=== PATIENT | male | born 1980 | race Two or more races ===

== ENCOUNTER 2016-09-24 02:54 | Emergency (ER) | payer OTHER ==
[~2016-09-24] VITALS: Ht 170.2 cm; Wt 85.3 kg
[2016-09-24 03:10] VITALS: BP 133/63
[2016-09-24] MEDS ORDERED: HYDROCODONE/APAP 5/325MG 1 EACH TABLET PO ONE (03:30)
[2016-09-24] MEDS ORDERED: TDAP [DIPH/PERTUSSIS/TET] 0.5 ML VIAL IM ONE ×2 (03:30→03:36)
[2016-09-24] MEDS ORDERED: ONDANSETRON 4 MG TAB.RAPDIS SL ONE (03:30)
[2016-09-24] MEDS ORDERED: CEPHALEXIN MONOHYDRATE 500 MG CAPSULE PO ONE ×2 (03:30→03:36)
[2016-09-24] MEDS ORDERED: SULFAMETH/TRIMETH 800/160 MG 1 UDTAB TABLET PO ONE ×2 (03:30→03:36)
[2016-09-24] MEDS ORDERED: ONDANSETRON 4 MG TAB.RAPDIS ONE (03:36)
[2016-09-24] MEDS ORDERED: HYDROCODONE/APAP 5/325MG 1 EACH TABLET ONE (03:36)
== END 2016-09-24 05:13 | disposition home or self-care (01) ==
LOC: ER 02:59
DX: S09.90XA Unspecified injury of head, initial encounter (principal); L03.211 Cellulitis of face; R51 Headache; W22.8XXA Striking against or struck by other objects, initial encounter; Y93.89 Activity, other specified; Y92.89 Other specified places as the place of occurrence of the external cause; Y99.9 Unspecified external cause status
CPT/HCPCS: 70450; 90471; 90715; 99284; A4606; Q0162; Z7610

== ENCOUNTER 2017-01-09 14:51 | Emergency (ER) | payer OTHER ==
[~2017-01-09] VITALS: Ht 170.2 cm; Wt 77.1 kg
[2017-01-09 14:51] VITALS: BP 118/57
[2017-01-09] MEDS ORDERED: IBUPROFEN 600 MG TABLET PO ONE ×2 (15:28→15:30)
[2017-01-09] MEDS ORDERED: ASPIRIN 325 MG TABLET ONE (15:28)
[2017-01-09] MEDS ORDERED: ASPIRIN 325 MG TABLET PO ONE (15:30)
[2017-01-09] MEDS ORDERED: LORAZEPAM 1 MG TABLET ONE (15:46)
[2017-01-09] MEDS ORDERED: LORAZEPAM 1 MG TABLET PO ONE (16:00)
--- NOTE | 2017-01-09 16:38 | NUR ---
PT FEELS MUCH BETTER POST MEDICATION. DENIES CHEST PAIN AT THIS TIME. D/C IN STABLE CONDITION.
== END 2017-01-09 16:49 | disposition home or self-care (01) ==
LOC: ER 14:53
DX: R07.89 Other chest pain (principal); L21.9 Seborrheic dermatitis, unspecified; F41.9 Anxiety disorder, unspecified; F12.10 Cannabis abuse, uncomplicated; F17.200 Nicotine dependence, unspecified, uncomplicated
CPT/HCPCS: 71010-TC; A4606; Z7610

== ENCOUNTER 2017-03-25 15:32 | Emergency (ER) | payer OTHER ==
[~2017-03-25] VITALS: Ht 170.2 cm; Wt 76.7 kg
[2017-03-25 15:42] VITALS: BP 132/77
== END 2017-03-25 16:14 | disposition other institution (70) ==
LOC: ER 15:37
DX: F41.9 Anxiety disorder, unspecified (principal); L30.9 Dermatitis, unspecified
CPT/HCPCS: 99284; A4606; Z7610

== ENCOUNTER 2017-04-21 20:54 | Emergency (ER) | payer OTHER ==
[~2017-04-21] VITALS: Ht 170.2 cm; Wt 72.6 kg
[2017-04-21 21:09] VITALS: BP 101/64
--- NOTE | 2017-04-21 21:54 | NUR ---
CALLED NO ANSWER
== END 2017-04-21 22:11 | disposition left against medical advice (07) ==
LOC: ER 20:56
DX: Z53.21 Procedure and treatment not carried out due to patient leaving prior to being seen by health care provider (principal)
CPT/HCPCS: A4606; Z7610

== ENCOUNTER 2017-05-09 19:07 | Emergency (ER) | payer OTHER ==
[~2017-05-09] VITALS: Ht 170.2 cm; Wt 77.1 kg
--- NOTE | 2017-05-09 19:10 | NUR ---
CALLED PT IN [place], NO RESPONSE
[2017-05-09 19:12] VITALS: BP 113/70
--- NOTE | 2017-05-09 19:35 | NUR ---
CALLED PT IN [place], NO RESPONSE
--- NOTE | 2017-05-09 20:01 | NUR ---
CALLED PT IN [place], NO RESPONSE
--- NOTE | 2017-05-09 20:24 | NUR ---
CALLED PT IN [place], NO RESPONSE
--- NOTE | 2017-05-09 20:25 | NUR ---
PER ER REGISRTATION, PT LEFT SOH
== END 2017-05-09 20:26 | disposition left against medical advice (07) ==
LOC: ER 19:08
DX: Z53.21 Procedure and treatment not carried out due to patient leaving prior to being seen by health care provider (principal)
CPT/HCPCS: A4606; Z7610

== ENCOUNTER 2017-06-25 06:02 | Emergency (ER) | payer OTHER ==
[~2017-06-25] VITALS: Ht 170.2 cm; Wt 72.6 kg
--- NOTE | 2017-06-25 06:05 | NUR ---
TO BED 8 A 36 YO MALE PATIENT BB FAMILY. "ALCOHOL POISONING." PATIENT IS ALERT AND RESPONSIVE. NAD NOTED. VSS. SEEN AMBULATING TO BED WITH STEADY GAIT. SAFETY AND COMFORT MEASURES PROVIDED.
[2017-06-25] MEDS ORDERED: LORAZEPAM INJ 2 MG/ML VIAL ONE (06:50)
--- NOTE | 2017-06-25 06:50 | NUR ---
STARTED A SALINE LOCK ON THE RIGHT HAND G20.
[2017-06-25] MEDS ORDERED: FAMOTIDINE/PF INJ 20 MG/2 ML VIAL IV ONE ×2 (06:51→07:00)
--- NOTE | 2017-06-25 06:56 | NUR ---
[facility] in ED - 06/25/17 at 0703 by ZOHREH MEDICATED PATIENT ORDERED BY DR RODRIGUEZ.
--- NOTE | 2017-06-25 06:56 | NUR ---
MEDICATED PATIENT ORDERED BY DR CAO.
--- NOTE | 2017-06-25 06:57 | NUR ---
APPLICATION SUPPORT TECHNICIAN AT BEDSIDE TO DRAW BLOOD.
[2017-06-25] MEDS ORDERED: LORAZEPAM INJ 2 MG/ML VIAL IV ONE (07:00)
[2017-06-25] MEDS ORDERED: IV NS 0.9% 1,000 ML BAG IV ONE (07:00)
--- NOTE | 2017-06-25 07:07 | NUR ---
ENDORSED CARE TO ALFREDO PEÑA FOR SHY.
--- NOTE | 2017-06-25 07:17 | NUR ---
Received patient from Funmilayo HUGO. Pt is lying in bed, with an on going IV fluid running. NAD. VSS rr even and unlabored. skin is warm and non diaphroetic.Will continue to montior
[2017-06-25 07:25] LABS: BASOPHILS # (AUTO) 0.1 /CMM (0.0-0.2); BASOPHILS % (AUTO) 0.5 % (0.0-2.0); EOSINOPHILS % (AUTO) 0.2 % (0.0-6.0); HEMATOCRIT 52 % (39-51); HEMOGLOBIN 16.9 g/dL (13.5-17.5); LYMPHOCYTES # (AUTO) 2.8 /CMM (0.8-4.8); LYMPHOCYTES % (AUTO) 20.2 % (20.0-44.0); MEAN CORPUSCULAR HEMOGLOBIN 30 PG (26.0-33.0); MEAN CORPUSCULAR HGB CONC 33 g/dl (31.0-36.0); MEAN CORPUSCULAR VOLUME 90 fL (80-96); MONOCYTES # (AUTO) 0.3 /CMM (0.1-1.30); MONOCYTES % (AUTO) 2.3 % (2.0-12.0); NEUTROPHILS # (AUTO) 10.6 /CMM (1.8-8.9); NEUTROPHILS % (AUTO) 76.8 % (43.0-81.0); PLATELET COUNT (AUTO) 289 /CMM (150-450); RDW COEFFICIENT OF VARIATION 12.7 (11.5-15.0); RED BLOOD CELL COUNT(AUTO) 5.74 MIL/uL (4.5-6.0); WHITE BLOOD COUNT (AUTO) 13.8 K/uL (4.3-11.0)
[2017-06-25 07:42] LABS: ALBUMIN 3.8 g/dL (3.4-5.0); BILIRUBIN,TOTAL 0.3 mg/dL (0.2-1.0); CALCIUM, SERUM 9.3 mg/dL (8.5-10.1); CREATININE 1.3 mg/dL (0.6-1.3); POTASSIUM 3.8 mmol/L (3.5-5.1); TOTAL PROTEIN, SERUM 7.2 g/dL (6.4-8.2)
[2017-06-25] MEDS ORDERED: KETOROLAC TROMETHAMINE 15 MG/ML VIAL ONE (07:59)
[2017-06-25] MEDS ORDERED: KETOROLAC TROMETHAMINE INJ 30 MG/ML VIAL IV ONE (08:00)
[2017-06-25] MEDS ORDERED: DICYCLOMINE HCL INJ 20 MG/2 ML AMPUL IM ONE ×2 (08:28→08:30)
[2017-06-25] MEDS ORDERED: ONDANSETRON HCL/PF 4 MG/2 ML VIAL ONE (08:28)
[2017-06-25] MEDS ORDERED: ONDANSETRON HCL/PF 4 MG/2 ML VIAL IV ONE (08:30)
--- NOTE | 2017-06-25 09:16 | NUR ---
patient asleep. VSS
--- NOTE | 2017-06-25 09:56 | NUR ---
PT. VERBALIZED UNDERSTANDING OF AFTERCARE INSTRUCTIONS.Patient discharged to home in stable condition. Written and verbal after care instructions given. Patient verbalizes understanding of instruction.IV removed. Catheter intact and site benign. Pressure and 4x4 applied to site. No bleeding noted.
[2017-06-25 10:08] VITALS: BP 131/87
== END 2017-06-25 10:08 | disposition home or self-care (01) ==
LOC: ER 06:04
DX: F10.129 Alcohol abuse with intoxication, unspecified (principal); E86.0 Dehydration; R11.2 Nausea with vomiting, unspecified
CPT/HCPCS: 36415; 80048; 80076; 83690; 85025; 96361; 96372; 96374; 96375; 99284; A4606; J0500; J1885; J2060; J2405; J3490; J7030; Z7610

== ENCOUNTER 2019-04-15 17:58 | Emergency (ER) | payer OTHER ==
[~2019-04-15] VITALS: Ht 170.2 cm; Wt 83.9 kg
[2019-04-15] MEDS ORDERED: KETOROLAC TROMETHAMINE INJ 30 MG/ML VIAL IV ONE (18:30)
[2019-04-15] MEDS ORDERED: ONDANSETRON HCL/PF 4 MG/2 ML VIAL IVP ONE (18:30)
[2019-04-15] MEDS ORDERED: HYDROMORPHONE INJ 2 MG/ML DISP.SYRIN IV ONE ×2 (18:30→20:00)
[2019-04-15] MEDS ORDERED: IV NS 0.9% 1,000 ML BAG IV ONE (18:30)
--- NOTE | 2019-04-15 18:30 | NUR ---
AAOX4. PATIENT BIB PARENTS W/ COMPLAINTS OF ABDOMINAL CRAMPS X3 HOURS. PATIENT IS NAUSEOUS AND IS DRY HEAVING. PATIENT IS COMPLAINING OF PAIN. AWAITING ON MD'S ORDER. WILL START IV FOR LABWORK. WILL CONTINUE TO MONITOR PATIENT FOR SAFETY.
[2019-04-15] MEDS ORDERED: HYDROMORPHONE 1 MG/1 ML DISP.SYRIN ONE ×2 (18:39→19:58)
[2019-04-15] MEDS ORDERED: ONDANSETRON HCL/PF 4 MG/2 ML VIAL ONE (18:39)
[2019-04-15] MEDS ORDERED: KETOROLAC TROMETHAMINE 15 MG/ML VIAL ONE (18:39)
[2019-04-15 18:40] LABS: BASOPHILS # (AUTO) 0.1 /CMM (0.0-0.2); BASOPHILS % (AUTO) 0.4 % (0.0-2.0); EOSINOPHILS % (AUTO) 0.1 % (0.0-6.0); HEMATOCRIT 53 % (39-51); HEMOGLOBIN 17.7 g/dL (13.5-17.5); LYMPHOCYTES # (AUTO) 1.9 /CMM (0.8-4.8); LYMPHOCYTES % (AUTO) 9.3 % (20.0-44.0); MEAN CORPUSCULAR HGB CONC 33 g/dl (31.0-36.0); MEAN CORPUSCULAR VOLUME 91 fL (80-96); MONOCYTES # (AUTO) 0.9 /CMM (0.1-1.30); MONOCYTES % (AUTO) 4.2 % (2.0-12.0); NEUTROPHILS # (AUTO) 17.5 /CMM (1.8-8.9); PLATELET COUNT (AUTO) 298 /CMM (150-450); RED BLOOD CELL COUNT(AUTO) 5.81 MIL/uL (4.5-6.0); WHITE BLOOD COUNT (AUTO) 20.3 K/uL (4.3-11.0)
--- NOTE | 2019-04-15 18:49 | NUR ---
RECREATION LEADER AT BEDSIDE TO TAKE PATIENT CT SCAN
[2019-04-15 18:54] LABS: ALBUMIN 5.1 g/dL (3.4-5.0); BILIRUBIN,DIRECT 0.2 mg/dL (0.0-0.2); BILIRUBIN,TOTAL 0.9 mg/dL (0.2-1.0); CALCIUM, SERUM 10.7 mg/dL (8.5-10.1); CREATININE 1.4 mg/dL (0.6-1.3); POTASSIUM 4.1 mmol/L (3.5-5.1); TOTAL PROTEIN, SERUM 9.6 g/dL (6.4-8.2)
--- NOTE | 2019-04-15 19:10 | NUR ---
RECEIVED OT FROM NICOLA HUGO FOR SHY. PT IN BED AAOX4. NAD NOTED.
--- NOTE | 2019-04-15 19:13 | NUR ---
REPORT GIVEN TO BETHEL LONGO FOR SHY.
--- NOTE | 2019-04-15 20:06 | NUR ---
Patient discharged to home in stable condition. Written and verbal after care instructions given. Patient verbalizes understanding of instruction.IV removed. Catheter intact and site benign. Pressure and 4x4 applied to site. No bleeding noted. Pt ambulatory with a steady gait
[2019-04-15 20:14] VITALS: BP 137/89
== END 2019-04-15 20:14 | disposition home or self-care (01) ==
LOC: ER 18:02
DX: K52.9 Noninfective gastroenteritis and colitis, unspecified (principal)
CPT/HCPCS: 36415; 74176; 80048; 80076; 83690; 85025; 96361; 96374; 96375; 96376; 99284; J1170 ×2; J1885; J2405; J7030

== ENCOUNTER 2019-06-19 04:00 | Emergency (ER) | payer OTHER ==
[~2019-06-19] VITALS: Ht 170.2 cm; Wt 83.9 kg
[2019-06-19] MEDS ORDERED: clonazePAM 1 MG TABLET ONE (04:26)
--- NOTE | 2019-06-19 04:28 | NUR ---
BIBSELF WITH FATHER FROM HOME. TO ER BED 4. AAOX4. NO RESP DISTRESS, BREATHING EVEN AND UNLABORED. AMBULATORY. C/O ANXIETY, FEELING OF FAINTING, SLEEPLESSNESS AND UNABLE TO GO TO THE BATHROOM TO HAVE BM. PT IS PRESENTED ANXIOUS, HE REPORTS THAT HE WAS ON CLONOPIN 2MG AND ABRUPTLY STOPPED IT ON HE WAS ALSO TAKING XYPREXA AND STOPPED IT ON 06/15/19. SLEEPLESSNESS HAS BEEN FOR THE PAST 3 DAYS AND NO BM WAS REPORTED IN THE PAST 8HRS BY PT. AT BEDSIDE FOR EVAL. AWAITING ORDERS
[2019-06-19] MEDS ORDERED: clonazePAM 1 MG TABLET PO ONE (04:30)
--- NOTE | 2019-06-19 04:52 | NUR ---
Patient discharged to home in stable condition. Written and verbal after care instructions given. Patient verbalizes understanding of instruction. Pt ambulatory with a steady gait
[2019-06-19 04:53] VITALS: BP 118/79
== END 2019-06-19 04:53 | disposition home or self-care (01) ==
LOC: ER 04:02
DX: F13.239 Sedative, hypnotic or anxiolytic dependence with withdrawal, unspecified (principal); F17.200 Nicotine dependence, unspecified, uncomplicated

== ENCOUNTER 2019-11-01 07:51 | Emergency (ER) | payer OTHER ==
[~2019-11-01] VITALS: Ht 167.6 cm; Wt 86.2 kg
[2019-11-01 07:54] VITALS: BP 109/71
--- NOTE | 2019-11-01 08:05 | NUR ---
Patient discharged to home in stable condition. Written and verbal after care instructions given. Patient verbalizes understanding of instruction.
== END 2019-11-01 08:07 | disposition home or self-care (01) ==
LOC: ER 07:52
DX: F41.9 Anxiety disorder, unspecified (principal); Z76.0 Encounter for issue of repeat prescription

== ENCOUNTER → 2019-11-01 | Emergency (ER) | payer OTHER | END | disposition home or self-care (01) | LOC: ER 07:46 | DX: Z75.3 Unavailability and inaccessibility of health-care facilities (principal) ==

== ENCOUNTER 2020-03-10 05:10 | Emergency (ER) | payer OTHER ==
[~2020-03-10] VITALS: Ht 167.6 cm; Wt 77.6 kg
--- NOTE | 2020-03-10 05:34 | NUR ---
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 PT AAOX4, VSS, REPIRATIONS EVEN AND UNLABORED ON RA W/ NAD NOTED. PT CONNECTED TO THE MONITOR AND POX
--- NOTE | 2020-03-10 05:52 | NUR ---
BLOOD DRAWN, COVID SWAB OBTAINED
[2020-03-10] MEDS: IV NS 0.9% 1,000 ML BAG IV ONE (05:53)
[2020-03-10] MEDS: ONDANSETRON HCL/PF 4 MG/2 ML VIAL IVP ONE (05:53)
[2020-03-10] MEDS: HYDROMORPHONE 1 MG/1 ML DISP.SYRIN IV ONE (05:53)
[2020-03-10] MEDS ORDERED: HYDROMORPHONE 1 MG/1 ML DISP.SYRIN ONE (05:53)
[2020-03-10 06:05] LABS: BASOPHILS # (AUTO) 0.2 /CMM (0.0-0.2); BASOPHILS % (AUTO) 1.7 % (0.0-2.0); EOSINOPHILS % (AUTO) 1.3 % (0.0-6.0); HEMATOCRIT 50 % (39-51); HEMOGLOBIN 16.5 g/dL (13.5-17.5); LYMPHOCYTES # (AUTO) 2.4 /CMM (0.8-4.8); MEAN CORPUSCULAR HGB CONC 33 g/dl (31.0-36.0); MEAN CORPUSCULAR VOLUME 90 fL (80-96); MONOCYTES # (AUTO) 0.9 /CMM (0.1-1.30); MONOCYTES % (AUTO) 6.5 % (2.0-12.0); NEUTROPHILS # (AUTO) 10.5 /CMM (1.8-8.9); NEUTROPHILS % (AUTO) 73.5 % (43.0-81.0); PLATELET COUNT (AUTO) 287 /CMM (150-450); RED BLOOD CELL COUNT(AUTO) 5.54 MIL/uL (4.5-6.0); WHITE BLOOD COUNT (AUTO) 14.3 K/uL (4.3-11.0)
[2020-03-10 06:16] LABS: CALCIUM, SERUM 10.1 mg/dL (8.5-10.1); CREATININE 0.9 mg/dL (0.6-1.3); POTASSIUM 3.3 mmol/L (3.5-5.1)
[2020-03-10 06:23] LABS: ALBUMIN 4.8 g/dL (3.4-5.0); BILIRUBIN,DIRECT 0.1 mg/dL (0.0-0.2); BILIRUBIN,TOTAL 0.4 mg/dL (0.2-1.0); TOTAL PROTEIN, SERUM 9.2 g/dL (6.4-8.2)
--- NOTE | 2020-03-10 06:23 | NUR ---
URINE COLLECTED AND SENT TO LAB
--- NOTE | 2020-03-10 06:32 | NUR ---
PT BROUGHT TO RADIOLOGY FOR CT
[2020-03-10 06:41] LABS: ALCOHOL, BLOOD < 3 mg/dL (0-0)
--- NOTE | 2020-03-10 06:45 | NUR ---
PT BACK FROM RADIOLOGY
--- NOTE | 2020-03-10 07:23 | NUR ---
christoph pt's father
[2020-03-10] MEDS ORDERED: POTASSIUM CHLORIDE 20 MEQ TAB.PRT.SR PO ONE (08:04)
[2020-03-10] MEDS ORDERED: FAMOTIDINE (20 MG) 20 MG TABLET ONE (08:10)
[2020-03-10] MEDS: POTASSIUM CHLORIDE 20 MEQ TAB.PRT.SR PO ONE (08:11)
[2020-03-10] MEDS: FAMOTIDINE (20 MG) 20 MG TABLET PO ONE (08:14)
[2020-03-10 08:24] VITALS: BP 135/81
--- NOTE | 2020-03-10 08:25 | NUR ---
Patient discharged to home in stable condition. Written and verbal after care instructions given. Patient verbalizes understanding of instruction.IV removed. Catheter intact and site benign. Pressure and 4x4 applied to site. No bleeding noted.
== END 2020-03-10 08:25 | disposition home or self-care (01) ==
LOC: ER 05:12
DX: R10.12 Left upper quadrant pain (principal); R11.2 Nausea with vomiting, unspecified; R19.7 Diarrhea, unspecified; R94.8 Abnormal results of function studies of other organs and systems; Z82.49 Family history of ischemic heart disease and other diseases of the circulatory system; K59.8 Other specified functional intestinal disorders; D72.829 Elevated white blood cell count, unspecified; K76.0 Fatty (change of) liver, not elsewhere classified; R94.5 Abnormal results of liver function studies; F41.9 Anxiety disorder, unspecified; Z87.820 Personal history of traumatic brain injury; R06.02 Shortness of breath
CPT/HCPCS: 36415; 71045; 74176; 80048; 80076; 80305; 80307; 83690; 84484; 85025; 87426; 93005; 96361; 96374; 96375; 99285; J1170; J7030; G0480

== ENCOUNTER 2020-08-02 01:46 | Emergency (ER) | payer OTHER ==
[~2020-08-02] VITALS: Ht 177.8 cm; Wt 81.6 kg
[2020-08-02 01:56] VITALS: BP 131/94
--- NOTE | 2020-08-02 02:26 | NUR ---
[facility] WALKING BOOT AND CRUTHCHES PROVIDED AND TRAINING DONE BY EMT.
[2020-08-02] MEDS ORDERED: KETOROLAC TROMETHAMINE INJ 60 MG/2 ML VIAL IM ONE ×2 (02:30→02:34)
--- NOTE | 2020-08-02 03:03 | NUR ---
PT AMBULATORY WITH PROPER USE OF CRUTHES DEMONSTRATED. PT AAOX4 NO ACUTE DISTRESS NOTED, RESP EVEN AND UNLABORED. ACI GIVEN AND PROVIDED TO PT. VERBALIZE UNDERSTANDING.
== END 2020-08-02 03:07 | disposition home or self-care (01) ==
LOC: ER 01:48
DX: S82.832A Other fracture of upper and lower end of left fibula, initial encounter for closed fracture (principal); F41.9 Anxiety disorder, unspecified; W01.0XXA Fall on same level from slipping, tripping and stumbling without subsequent striking against object, initial encounter; Y93.89 Activity, other specified; Y92.89 Other specified places as the place of occurrence of the external cause; Y99.8 Other external cause status
CPT/HCPCS: 73610; 73630; 96372; 99284; J1885

== ENCOUNTER 2020-10-02 18:20 | Emergency (ER) | payer OTHER ==
[~2020-10-02] VITALS: Ht 170.2 cm; Wt 90.7 kg
--- NOTE | 2020-10-02 18:35 | NUR ---
aaox3, bib self to ER c/o "Was on a fast for about 1wk today when GF came over drank a fifth of cheri (whisky) since then cant stop vomiting". RR is even and unlabored with NAD noted. Placed on the monitor EKG baseline sinus tach at 105. Awaiting md for eval.
[2020-10-02] MEDS ORDERED: MORPHINE SULFATE INJ 4 MG/ML DISP.SYRIN ONE ×2 (18:49→19:48)
[2020-10-02] MEDS ORDERED: ONDANSETRON HCL/PF 4 MG/2 ML VIAL ONE (18:53)
[2020-10-02] MEDS: IV NS 0.9% 1,000 ML BAG IV ONE (18:57)
[2020-10-02] MEDS: ONDANSETRON HCL/PF 4 MG/2 ML VIAL IVP ONE (18:57)
[2020-10-02] MEDS: FAMOTIDINE/PF INJ 20 MG/2 ML VIAL IV ONE (18:57)
[2020-10-02] MEDS: MORPHINE SULFATE INJ 2 MG/ML DISP.SYRIN IV ONE ×2 (18:57→19:50)
[2020-10-02] MEDS ORDERED: FAMOTIDINE/PF INJ 20 MG/2 ML VIAL IV ONE (18:59)
[2020-10-02 19:04] LABS: BASOPHILS # (AUTO) 0.1 /CMM (0.0-0.2); BASOPHILS % (AUTO) 0.5 % (0.0-2.0); HEMATOCRIT 46 % (39-51); HEMOGLOBIN 15.5 g/dL (13.5-17.5); LYMPHOCYTES # (AUTO) 1.1 /CMM (0.8-4.8); LYMPHOCYTES % (AUTO) 6.9 % (20.0-44.0); MEAN CORPUSCULAR HGB CONC 34 g/dl (31.0-36.0); MEAN CORPUSCULAR VOLUME 89 fL (80-96); MONOCYTES # (AUTO) 0.5 /CMM (0.1-1.30); MONOCYTES % (AUTO) 3.4 % (2.0-12.0); NEUTROPHILS # (AUTO) 14.2 /CMM (1.8-8.9); NEUTROPHILS % (AUTO) 89.2 % (43.0-81.0); PLATELET COUNT (AUTO) 317 /CMM (150-450); RED BLOOD CELL COUNT(AUTO) 5.15 MIL/uL (4.5-6.0); WHITE BLOOD COUNT (AUTO) 15.9 K/uL (4.3-11.0)
--- NOTE | 2020-10-02 19:12 | NUR ---
current HR is 83
[2020-10-02 19:25] LABS: ALBUMIN 4.8 g/dL (3.4-5.0); BILIRUBIN,DIRECT 0.1 mg/dL (0.0-0.2); BILIRUBIN,TOTAL 0.7 mg/dL (0.2-1.0); CREATININE 1.2 mg/dL (0.6-1.3); POTASSIUM 4.1 mmol/L (3.5-5.1); TOTAL PROTEIN, SERUM 8.9 g/dL (6.4-8.2)
[2020-10-02 21:09] LABS: BILIRUBIN,URINE NEGATIVE (NEGATIVE); COLOR,URINE YELLOW (YELLOW); LEUKOCYTE ESTERASE ,URINE NEGATIVE (NEGATIVE); NITRITE, URINE NEGATIVE (NEGATIVE); PROTEIN,URINE TRACE mg/dl (NEGATIVE); UGLUCOSE NEGATIVE (NEGATIVE); UROBILINOGEN,URINE 0.2 EU/dL (0.2)
[2020-10-02] MEDS ORDERED: FAMO-131 PO (21:13)
[2020-10-02] MEDS ORDERED: ONDA4TAB11 PO (21:13)
--- NOTE | 2020-10-02 21:30 | NUR ---
Patient discharged to home in stable condition. Written and verbal after care instructions given. Patient verbalizes understanding of instruction. IV removed. Catheter intact and site benign. Pressure and 4x4 applied to site. No bleeding noted.
[2020-10-02 21:35] VITALS: BP 139/83
[2020-10-02 21:36] LABS: BACTERIA,URINE None seen /HPF (None Seen); MUCUS,URINE Few /LPF (None Seen); SQUAMOUS EPITHELIAL CELL,UR 0-2 /HPF (None Seen); WBC,URINE 0-2 /HPF (0-3)
== END 2020-10-02 21:36 | disposition home or self-care (01) ==
LOC: ER 18:24
DX: R10.84 Generalized abdominal pain (principal); R11.2 Nausea with vomiting, unspecified; F10.10 Alcohol abuse, uncomplicated; F12.10 Cannabis abuse, uncomplicated; F41.9 Anxiety disorder, unspecified; Y90.9 Presence of alcohol in blood, level not specified
CPT/HCPCS: 36415; 74176; 80048; 80076; 80307; 81001; 82550; 83690; 85025; 96361; 96374; 96375; 96376; 99284; J2270 ×2; J2405; J3490; J7030

== ENCOUNTER 2021-01-04 11:56 | Emergency (ER) | payer OTHER ==
[~2021-01-04] VITALS: Ht 170.2 cm; Wt 85.3 kg
[~2021-01-04 11:56] MED LIST: FAMO-131 PO; ONDA4TAB11 PO
--- NOTE | 2021-01-04 12:05 | NUR ---
Patient came in to the er c/o nausea vomiting, last alcohol last night. On room air, breathing evenly and unlabored, connected to the monitor and pulse ox, kept comfortable, will continue to monitor accordingly.
[2021-01-04] MEDS ORDERED: IV NS 0.9% 1,000 ML BAG IV ONE (12:30)
[2021-01-04 12:47] LABS: BASOPHILS # (AUTO) 0.1 /CMM (0.0-0.2); BASOPHILS % (AUTO) 0.5 % (0.0-2.0); EOSINOPHILS % (AUTO) 0.3 % (0.0-6.0); HEMATOCRIT 44 % (39-51); HEMOGLOBIN 14.9 g/dL (13.5-17.5); LYMPHOCYTES # (AUTO) 2.1 /CMM (0.8-4.8); LYMPHOCYTES % (AUTO) 11.3 % (20.0-44.0); MEAN CORPUSCULAR HGB CONC 34 g/dl (31.0-36.0); MEAN CORPUSCULAR VOLUME 91 fL (80-96); MONOCYTES # (AUTO) 0.6 /CMM (0.1-1.30); MONOCYTES % (AUTO) 3.4 % (2.0-12.0); NEUTROPHILS % (AUTO) 84.5 % (43.0-81.0); PLATELET COUNT (AUTO) 277 /CMM (150-450); RED BLOOD CELL COUNT(AUTO) 4.89 MIL/uL (4.5-6.0)
[2021-01-04] MEDS ORDERED: ONDANSETRON HCL/PF 4 MG/2 ML VIAL IV ONE (13:00)
[2021-01-04] MEDS ORDERED: ONDANSETRON HCL/PF 4 MG/2 ML VIAL ONE (13:03)
[2021-01-04 13:08] LABS: ALANINE AMINOTRANSFERASE 52 U/L (12-78); ALBUMIN 4.5 g/dL (3.4-5.0); ALCOHOL, BLOOD 54 mg/dL (0-0); ALKALINE PHOSPHATASE 97 U/L (46-116); ASPARTATE AMINOTRANSFERASE 46 U/L (15-37); BILIRUBIN,DIRECT 0.1 mg/dL (0.0-0.2); BILIRUBIN,TOTAL 0.4 mg/dL (0.2-1.0); CALCIUM, SERUM 9.2 mg/dL (8.5-10.1); CARBON DIOXIDE 15 mmol/L (21-32); CHLORIDE 105 mmol/L (98-107); GLUCOSE 74 mg/dL (74-106); POTASSIUM 3.8 mmol/L (3.5-5.1); SODIUM SERUM 144 mmol/L (136-145); TOTAL PROTEIN, SERUM 8.5 g/dL (6.4-8.2); UREA NITROGEN, BLOOD 19 mg/dL (7-18)
[2021-01-04 13:09] LABS: ACETAMINOPHEN < 10 ug/ml (10-30)
[2021-01-04] MEDS ORDERED: ONDA4TAB5 PO (13:20)
[2021-01-04] MEDS ORDERED: FAMO-131 PO (13:20)
[2021-01-04 13:32] VITALS: BP 119/87
== END 2021-01-04 13:32 | disposition home or self-care (01) ==
LOC: ER 11:59
DX: F10.10 Alcohol abuse, uncomplicated (principal); E86.0 Dehydration; F41.9 Anxiety disorder, unspecified; Z79.899 Other long term (current) drug therapy; Y90.2 Blood alcohol level of 40-59 mg/100 ml
CPT/HCPCS: 36415; 80048; 80076; 80143; 80320; 83690; 85025; 96361; 96374; 99283; J2405; J7030 ×2; G0480

== ENCOUNTER 2022-02-05 02:23 | Emergency (ER) | payer OTHER ==
[~2022-02-05] VITALS: Ht 167.6 cm; Wt 81.6 kg
[~2022-02-05 02:23] MED LIST changes: +ONDA4TAB5 PO
--- NOTE | 2022-02-05 03:55 | NUR ---
BIBMOTHER C/O NON STOP SHAKINESS N/V S/P DRINKING 2 BOTTLES OF WHISKEY. PATIENT PRESENTS WITH GENERALIZED ABDOMINAL PAIN. PATIENT AMBULATED TO [facility]. 2 EPISODE OF VOMITING. PATIENT ATTACHED TO BED SIDE MONITOR.
[2022-02-05] MEDS ORDERED: IV NS 0.9% 1,000 ML BAG IV ONE (04:00)
[2022-02-05] MEDS ORDERED: ONDANSETRON HCL/PF 4 MG/2 ML VIAL IVP ONE (04:00)
[2022-02-05] MEDS ORDERED: ONDANSETRON HCL/PF 4 MG/2 ML VIAL ONE (04:04)
[2022-02-05 04:11] LABS: BASOPHILS # (AUTO) 0.1 K/uL (0.0-0.2); BASOPHILS % (AUTO) 0.8 % (0.0-2.0); EOSINOPHILS % (AUTO) 0.1 % (0.0-6.0); HEMATOCRIT 44 % (39-51); HEMOGLOBIN 14.8 g/dL (13.5-17.5); LYMPHOCYTES # (AUTO) 1.1 K/uL (0.8-4.8); LYMPHOCYTES % (AUTO) 7.3 % (20.0-44.0); MEAN CORPUSCULAR HGB CONC 34 g/dl (31.0-36.0); MEAN CORPUSCULAR VOLUME 87 fL (80-96); MONOCYTES # (AUTO) 0.5 K/uL (0.1-1.30); MONOCYTES % (AUTO) 3.2 % (2.0-12.0); NEUTROPHILS # (AUTO) 13.2 K/uL (1.8-8.9); NEUTROPHILS % (AUTO) 88.6 % (43.0-81.0); PLATELET COUNT (AUTO) 273 K/uL (150-450); RED BLOOD CELL COUNT(AUTO) 4.98 MIL/uL (4.5-6.0); WHITE BLOOD COUNT (AUTO) 14.9 K/uL (4.3-11.0)
--- NOTE | 2022-02-05 04:11 | NUR ---
ESTABLISHED RIGHT AC 20G PIV
[2022-02-05 04:22] LABS: CALCIUM, SERUM 9.5 mg/dL (8.5-10.1); CREATININE 1.1 mg/dL (0.6-1.3)
[2022-02-05 04:25] LABS: ALBUMIN 4.7 g/dL (3.4-5.0); BILIRUBIN,DIRECT 0.2 mg/dL (0.0-0.2); BILIRUBIN,TOTAL 0.5 mg/dL (0.2-1.0); TOTAL PROTEIN, SERUM 8.5 g/dL (6.4-8.2)
[2022-02-05] MEDS ORDERED: LORAZEPAM INJ 2 MG/ML VIAL IV ONE (04:30)
[2022-02-05] MEDS ORDERED: LORAZEPAM INJ 2 MG/ML VIAL ONE (04:32)
[2022-02-05] MEDS ORDERED: CHLO25CA10 PO (05:08)
[2022-02-05] MEDS ORDERED: MAG HYDROX/AL HYDROX/SIMETH 30 ML UDC ONE (05:31)
[2022-02-05] MEDS ORDERED: LIDOCAINE VISCOUS 2% UD 15 ML UDC ONE (05:31)
[2022-02-05] MEDS ORDERED: MAG HYDROX/AL HYDROX/SIMETH 30 ML UDC PO ONE (06:00)
[2022-02-05] MEDS ORDERED: LIDOCAINE VISCOUS 2% UD 15 ML UDC MM ONE (06:00)
--- NOTE | 2022-02-05 06:27 | NUR ---
Patient discharged to home in stable condition. Written and verbal after care instructions given. Patient verbalizes understanding of instruction. rx given
[2022-02-05 06:28] VITALS: BP 135/70
== END 2022-02-05 06:28 | disposition home or self-care (01) ==
LOC: ER 02:24
DX: R11.2 Nausea with vomiting, unspecified (principal); F10.239 Alcohol dependence with withdrawal, unspecified; F10.229 Alcohol dependence with intoxication, unspecified; F41.9 Anxiety disorder, unspecified; Z79.899 Other long term (current) drug therapy; Y90.0 Blood alcohol level of less than 20 mg/100 ml
CPT/HCPCS: 36415; 74176; 80048; 80076; 80320; 83690; 85025; 96361; 96374; 96375; 99284; J2060; J2405; J7030; G0480

== ENCOUNTER 2022-07-11 17:33 | Emergency (ER) | payer OTHER ==
[~2022-07-11] VITALS: Ht 167.6 cm; Wt 72.1 kg
[~2022-07-11 17:33] MED LIST changes: +CHLO25CA10 PO
[2022-07-11 20:32] VITALS: BP 145/70
[2022-07-11] MEDS ORDERED: HYDROCODONE/APAP 5/325MG TABLET PO ONE (21:30)
[2022-07-11] MEDS ORDERED: IBUPROFEN 600 MG TABLET PO ONE (21:30)
[2022-07-11] MEDS ORDERED: IBUP-1955 PO (21:44)
[2022-07-11] MEDS ORDERED: CYCL10TA9 PO (21:44)
[2022-07-11] MEDS ORDERED: HYDROCODONE/APAP 5/325MG TABLET ONE (21:47)
[2022-07-11] MEDS ORDERED: IBUPROFEN 600 MG TABLET ONE (21:47)
[2022-07-11] MEDS ORDERED: TDAP [DIPH/PERTUSSIS/TET] 0.5 ML VIAL IM ONE ×2 (21:50→22:00)
== END 2022-07-11 22:09 | disposition home or self-care (01) ==
LOC: ER 17:37
DX: S20.212A Contusion of left front wall of thorax, initial encounter (principal); F41.9 Anxiety disorder, unspecified; Z79.899 Other long term (current) drug therapy; Y04.2XXA Assault by strike against or bumped into by another person, initial encounter; Y93.89 Activity, other specified; Y92.89 Other specified places as the place of occurrence of the external cause; Y99.8 Other external cause status
CPT/HCPCS: 71100-TC; 90715